=== PATIENT | female | born 1945 | race Two or more races ===

== ENCOUNTER 2018-02-14 07:37 | Outpatient (CLI) | payer OTHER ==
[~2018-02-14 07:37] MED LIST: ASA81 MG; CARAFATE1 G; CELEXA20 MG; COREG CR10 MG; EPIVIR300 MG; FOLIC ACID1 MG; KLONOPIN0.5 MG/TAB; NEURIN SL; PLAVIX75 MG; PROTONIX40 MG; SELZENTRY300 MG; SYNTHROID50 MCG; VALTREX1000 MG; ZANTAC300 MG
== END 2018-02-14 07:58 | disposition home or self-care (01) ==
LOC: LAB 07:37
DX: I10 Essential (primary) hypertension (principal); E11.9 Type 2 diabetes mellitus without complications; E03.8 Other specified hypothyroidism; E78.2 Mixed hyperlipidemia; B20 Human immunodeficiency virus [HIV] disease

== ENCOUNTER → 2018-09-29 09:11 | Outpatient (CLI) | payer OTHER | END | disposition home or self-care (01) | LOC: LAB 09:11 | DX: B20 Human immunodeficiency virus [HIV] disease (principal); E03.8 Other specified hypothyroidism; I10 Essential (primary) hypertension ==

== ENCOUNTER 2018-10-01 08:56 | Outpatient (CLI) | payer OTHER | END 2018-10-01 10:07 | disposition home or self-care (01) | LOC: LAB 08:56 | DX: B20 Human immunodeficiency virus [HIV] disease (principal); E03.8 Other specified hypothyroidism; I10 Essential (primary) hypertension; Z11.4 Encounter for screening for human immunodeficiency virus [HIV] ==

== ENCOUNTER 2019-02-09 07:50 | Outpatient (CLI) | payer OTHER | END 2019-02-09 08:03 | disposition home or self-care (01) | LOC: LAB 07:50 | DX: B20 Human immunodeficiency virus [HIV] disease (principal); N39.0 Urinary tract infection, site not specified; E78.49 Other hyperlipidemia; I10 Essential (primary) hypertension; Z11.4 Encounter for screening for human immunodeficiency virus [HIV] ==

== ENCOUNTER 2019-02-11 09:01 | Outpatient (CLI) | payer OTHER | END 2019-02-11 15:00 | disposition home or self-care (01) | LOC: LAB 09:01 | DX: E03.8 Other specified hypothyroidism (principal); I10 Essential (primary) hypertension; B20 Human immunodeficiency virus [HIV] disease ==

== ENCOUNTER 2019-12-16 07:36 | Outpatient (CLI) | payer OTHER | END 2019-12-16 07:48 | disposition home or self-care (01) | LOC: LAB 07:36 | DX: B20 Human immunodeficiency virus [HIV] disease (principal) ==

== ENCOUNTER → 2023-07-13 15:48 | Outpatient (CLI) | payer OTHER | END | disposition home or self-care (01) | LOC: MAMO-SONO 15:48 | PROVIDERS: ATTEND Internal Medicine Cardiovascular Disease | DX: N63.11 Unspecified lump in the right breast, upper outer quadrant (principal); Z12.31 Encounter for screening mammogram for malignant neoplasm of breast ==

== ENCOUNTER 2023-11-09 09:52 | Outpatient (CLI) | payer OTHER | END 2023-11-09 09:54 | disposition home or self-care (01) | LOC: NUCLEAR 09:52 | PROVIDERS: ATTEND Thoracic Surgery (Cardiothoracic Vascular Surgery) | DX: I87.2 Venous insufficiency (chronic) (peripheral) (principal) ==

== ENCOUNTER 2023-11-10 10:59 | Outpatient (CLI) | payer OTHER | END 2023-11-10 11:01 | disposition home or self-care (01) | LOC: NUCLEAR 10:59 | PROVIDERS: ATTEND Thoracic Surgery (Cardiothoracic Vascular Surgery) | DX: I73.9 Peripheral vascular disease, unspecified (principal) ==